=== PATIENT | male | born 1990 | race Caucasian/White ===

== ENCOUNTER 2025-04-19 18:41 | Emergency (ER) | payer OTHER ==
[~2025-04-19] VITALS: Ht 188 cm; Wt 149.7 kg
[2025-04-19 22:29] VITALS: BP 189/117
== END 2025-04-19 22:30 | disposition home or self-care (01) ==
LOC: ED 18:41
DX: S80.01XA Contusion of right knee, initial encounter (principal); Z88.2 Allergy status to sulfonamides; W01.0XXA Fall on same level from slipping, tripping and stumbling without subsequent striking against object, initial encounter
CPT/HCPCS: 73560; 99283